=== PATIENT | female | born 1960 | race Caucasian/White ===

== ENCOUNTER → 2018-05-26 | Outpatient (CLI) | payer BC ==
--- NOTE | 2018-05-27 08:45 | Diagnostic Imaging Report ---
EXAM: Thyroid Ultrasound INDICATION: Thyromegaly COMPARISON: None TECHNIQUE: Transverse and sagittal images were obtained of the thyroid gland. FINDINGS: Thyroid gland: Size: Right lobe 3.9 x 1.4 x 1.5 cm, Normal in size Left lobe 3.9 x 1.1 x 1.1 cm, Normal in size Isthmus 0.26 cm, Normal in size Appearance: Homogeneous echotexture without increased vascularity Masses/Nodules: 1.3 x 0.8 x 1.0 cm complex nodule in the right thyroid lobe at the mid aspect with internal echogenic material and increased vascularity. 0.7 x 0.3 x 0.5 cm cyst in the medial inferior right thyroid lobe. 0.6 x 0.2 x 0.3 cm cyst in the mid right thyroid lobe lateral superior aspect with echogenic foci. 1.3 x 0.6 x 0.8 cm solid appearing isoechoic lesion in the left lateral mid thyroid lobe. 0.4 x 0.2 x 0.2 cm cyst in the lateral superior aspect of the left thyroid lobe. 0.6 cm hypoechoic lymph node in the left neck. Parathyroid: No focal parathyroid masses. IMPRESSION: Thyroid nodules and cysts as described above. 1.3 cm complex nodule in the right thyroid lobe at the mid aspect with internal echogenic material and increased vascularity. 1.3 cm solid appearing isoechoic lesion in the left lateral mid thyroid lobe. Signed by: Dr. Brody Lira M.D. on 05/27/2018 8:41 AM
== END ==
LOC: US 13:23
PROVIDERS: ATTEND Family Medicine
DX: Z12.31 Encounter for screening mammogram for malignant neoplasm of breast (principal); E01.0 Iodine-deficiency related diffuse (endemic) goiter
CPT/HCPCS: 76536

== ENCOUNTER → 2019-02-23 | Outpatient (CLI) | payer BC ==
--- NOTE | 2019-02-28 08:27 | Diagnostic Imaging Report ---
#[id number] - [facility] ULTRASOUND OF THE LEFT BREAST : 02/23/2019 Comparison is made to exam dated: 05/27/2018 ultrasound - [facility]. Color flow and real-time ultrasound were performed on the entire left breast with scanning in all four quadrants, retroareolar region and the left axilla. -At 1 o'clock 3 cm from the nipple there is a benign cyst measuring 5 x 3 x 6 mm. IMPRESSION: BENIGN There is no sonographic evidence of malignancy. A 1 year screening mammogram is recommended. Bj Winchester Jr., D.O. cw/:02/25/2019 08:45:46 Biomass Facilitator: Dodie Peacock RDMS, [facility] letter sent: Normal Exam Ultrasound BI-RADS: 2 Benign
--- NOTE | 2019-02-28 08:27 | Diagnostic Imaging Report ---
#[id number] - [facility] : 02/23/2019 Comparison is made to exam dated: 05/27/2018 ultrasound - [facility]. Color flow and real-time ultrasound were performed on the entirer right breast with scanning in all four quadrants, retroareolar region and the right axilla. -At 3 o'clock 3 cm from the nipple there is a hyperechoic nodule measuring 6 x 3 x 5 mm and appearing similar -At 10 o'clock 10 cm from the nipple there is a hyperechoic nodule measuring 6 x 3 x 3 mm and appearing similar IMPRESSION: BENIGN There is no sonographic evidence of malignancy. A 1 year screening mammogram is recommended. Bj Winchester Jr., D.O. cw/:02/25/2019 08:56:49 General Contractor: Dodei Peacock RDSD, [facility] letter sent: Compared to Prior B9 Ultrasound BI-RADS: 2 Benign
== END ==
LOC: US 07:30
DX: N63.20 Unspecified lump in the left breast, unspecified quadrant (principal); N63.10 Unspecified lump in the right breast, unspecified quadrant

== ENCOUNTER → 2019-10-12 | Outpatient (CLI) | payer BC ==
--- NOTE | 2019-10-13 10:42 | Diagnostic Imaging Report ---
#[id number] - [id number] #BILATERAL DIGITAL DIAGNOSTIC MAMMOGRAM WITH CAD: 10/12/2019 Comparison is made to exams dated: 02/23/2019 ultrasound and 02/23/2019 ultrasound - [facility]. Current study contains 8 films. There are scattered fibroglandular elements in both breasts. Current study was also evaluated with a Computer Aided Detection (CAD) system. Bilateral prepectoral breast implants are intact. Benign appearing calcifications are noted bilaterally. No significant masses, calcifications, or other findings are seen in either breast. IMPRESSION: BENIGN There is no mammographic evidence of malignancy. A 1 year screening mammogram is recommended. The patient will be notified by letter of the results. MARIANNA COUCH M.D. ct/penrad:10/12/2019 16:37:46 Deaf/Hard Of Hearing Specialist: Janice MEI)([place]), [facility] letter sent: Normal Exam Mammogram BI-RADS: 2 Benign
== END ==
LOC: MAMMO 14:36
DX: N64.4 Mastodynia (principal); Z98.82 Breast implant status
CPT/HCPCS: 77066